=== PATIENT | male | born 1960 | race Caucasian/White ===

== ENCOUNTER 2019-03-23 09:31 | Outpatient (CLI) | payer OTHER ==
--- NOTE | 2019-03-23 11:22 | MRI ---
EXAM: MRI left shoulder PROVIDED CLINICAL HISTORY: Left shoulder pain COMPARISON: None FINDINGS: Nondisplaced greater tuberosity fracture is demonstrated. There is patchy associated marrow edema. Th ere is minimal undersurface irregularity/low-grade partial thickness undersurface tearing involving the anterior distal infraspinatus tendon. Components of the rotator cuff appear otherwise intact. The long head biceps tendon appears intact and normally located. The glenoid labrum and glenohumeral articular cartilage are suboptimally evaluated in the absence of joint distention but appear grossly normal. The amounts of fluid within the subacromial subdeltoid bursa and glenohumeral joint appears physiologic. Acromioclavicular joint osteoarthrosis is demonstrated with mild mass effect upon the subjacent supra spinatus. IMPRESSION: 1. Nondisplaced greater tuberosity fracture. 2. Minimal undersurface irregularity/low-grade partial thickness undersurface tearing involving the p osterior distal infraspinatus tendon. 3. Acromioclavicular joint osteoarthrosis.
== END 2019-03-23 09:32 | disposition home or self-care (01) ==
LOC: SCSMRI 09:31
PROVIDERS: ATTEND Orthopaedic Surgery
DX: S42.255A Nondisplaced fracture of greater tuberosity of left humerus, initial encounter for closed fracture (principal); S46.912A Strain of unspecified muscle, fascia and tendon at shoulder and upper arm level, left arm, initial encounter; M19.012 Primary osteoarthritis, left shoulder